=== PATIENT | female | born 1955 | race Two or more races ===

== ENCOUNTER 2017-02-21 15:22 | Emergency (ER) | payer MEDICAID ==
[~2017-02-21] VITALS: Ht 152.4 cm; Wt 77.1 kg
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
[2017-02-21 16:01] VITALS: BP 154/79
[2017-02-21] MEDS ORDERED: TYLENOL EXTRA500 MG ORAL (16:50)
[2017-02-21 16:59] VITALS: BP 154/79
--- NOTE | 2017-02-22 11:51 | Diagnostic Imaging Report ---
Indication: Dyspnea Comparison: None A single view chest radiograph was obtained. Findings: Cardiomediastinal appearance is within normal limits for age. Pulmonary vascularity is appropriate. The diaphragmatic contour is smooth and costophrenic angles are sharp. No pleural effusions are identified. The bones are osteopenic. Impression: No acute findings
== END 2017-02-21 17:00 | disposition home or self-care (01) ==
LOC: EDBD 15:22 → EMR 16:16
DX: S20.219A Contusion of unspecified front wall of thorax, initial encounter (principal); V43.62XA Car passenger injured in collision with other type car in traffic accident, initial encounter; Y92.410 Unspecified street and highway as the place of occurrence of the external cause; I10 Essential (primary) hypertension
CPT/HCPCS: 71010; 99283